=== PATIENT | male | born 1955 | race Caucasian/White ===

== ENCOUNTER 2019-10-04 05:07 | Emergency (ER) | payer OTHER, MEDICARE ==
[~2019-10-04] VITALS: Ht 170.2 cm; Wt 86.2 kg
[~2019-10-04 05:07] MED LIST: ALLOPURINOL 30300 M2 PO; CARVEDILOL25 MG PO; CLONIDINE0.1 PO; COUMADIN 5 MG TA5 M1 PO; FLONASE 0.05%50 MCG NASAL; HYDROCHLOROTH12.5 M1 PO; HYDROCODONE-APA1 TA1 PO; KEFLEX500 MG PO; PRINIVIL20 M1 PO; SPIRONOLACTONE25 M1 PO; TRAMADOL 50 MG50 MG PO
== END 2019-10-04 05:25 | disposition left against medical advice (07) ==
LOC: M.ERS 05:07
DX: Z53.21 Procedure and treatment not carried out due to patient leaving prior to being seen by health care provider (principal)